=== PATIENT | male | born 1985 | race Caucasian/White ===

== ENCOUNTER 2021-05-29 05:54 | Day surgery (SDC) | payer BC ==
[2021-05-29] MEDS ORDERED: Lactated Ringers 1,000 ML IV SCH (06:30)
[2021-05-29] MEDS ORDERED: Lactated Ringers 1,000 ML IV ONE (06:45)
[2021-05-29] MEDS ORDERED: DIPRIVAN 200 MG/20 ML IV ONE (08:01)
[2021-05-29] MEDS ORDERED: Versed 2 MG/2 ML Injection ONE (08:02)
[2021-05-29 09:54] VITALS: O2SAT 98
[2021-05-29 09:58] VITALS: BP 130/82; PULSE 72
--- NOTE | 2021-05-29 14:49 | OP ---
SURGERY DATE: 05/29/2021 SURGERY TIME: 808 PREOPERATIVE DIAGNOSIS: 1. PERSISTENT GASTROESOPHAGEAL REFLUX DISEASE. POSTOPERATIVE DIAGNOSIS: 1. NORMAL EXAM. PROCEDURE: 1. EGD. SPECIMENS: None. ESTIMATED BLOOD LOSS: None. SURGEON: Dr. Yemi Lopez. ANESTHESIA: MAC by Maurice Ellis CRNA. DESCRIPTION OF PROCEDURE: After informed written consent was obtained, the patient was placed in the left lateral decubitus position and a bite block was inserted. Anesthesia was titrated to the desired level of consciousness. The endoscope was inserted in the posterior oropharynx. There was some difficulty with titrating the anesthesia and patient was somewhat resistant initially. Therefore, the scope was removed and allowed anesthesia to re-dose medication. Eventually, the posterior oropharynx was entered and the esophagus was traversed with direct visualization of the esophageal mucosa. There were no obvious mucosal abnormalities. Upon entry into the stomach, the gastroesophageal junction likewise had a normal appearance and the gastric mucosa had a normal rugated appearance. The pylorus was traversed and the 1st and 2nd portions of the duodenum had a normal mucosal appearance. Upon withdrawal, all mucosal structures appeared within normal limits. There were no obvious lesions or abnormalities. There were no strictures visible in the esophagus. The scope was removed and the patient was transferred to the recovery room in good condition. I have advised that he start on a proton pump inhibitor as he is currently not taking any medications. Therefore, I have sent him a script for pantoprazole 40 mg daily and have him follow-up with his PCP.
== END 2021-05-29 09:52 | disposition home or self-care (01) ==
LOC: SDC 05:54
PROVIDERS: ATTEND Family Medicine
DX: K21.9 Gastro-esophageal reflux disease without esophagitis (principal); R13.10 Dysphagia, unspecified
CPT/HCPCS: J2250; J2704